=== PATIENT | male | born 2005 | race Two or more races ===

== ENCOUNTER 2024-08-18 17:53 | Emergency (ER) | payer OTHER ==
[~2024-08-18] VITALS: Ht 160 cm; Wt 59.0 kg
[2024-08-18] MEDS ORDERED: PROMETHAZINE HCL 50 MG/ML AMPUL IM ONE (20:00)
[2024-08-18] MEDS ORDERED: METOCLOPRAMIDE HCL 5 MG/ML VIAL IM ONE (20:00)
[2024-08-18] MEDS ORDERED: 0.9 % SODIUM CHLORIDE 1,000 ML IV ONE (20:00)
[2024-08-18 21:11] LABS: HEMATOCRIT 45.7 % (39.0-48.0); HEMOGLOBIN 15.7 g/dL (13-16.00); MEAN CELL VOLUME 88.4 fL (80.0-100.00); MEAN CORPUSCULAR HEMOGLOBIN 30.4 pg (27.00-32.0); MEAN CORPUSCULAR HGB CONC 34.4 g/dl (32.0-36.0); PLATELET COUNT 244 K/uL (150-450); RED BLOOD COUNT 5.17 M/uL (4.00-6.00); RED CELL DISTRIBUTION WIDTH 12.9 % (11.5-14.5)
[2024-08-18 21:33] LABS: ALBUMIN 4.9 gm/dL (3.4-5.0); BILIRUBIN TOTAL 1.17 mg/dL (0.3-1.2); CALCIUM 10.1 mg/dL (8.5-10.1); GFR 94.33; GLOBULINA 3.8 G/DL (2.4-3.5); POTASSIUM 4.07 mEq/L (3.5-5.1); TOTAL PROTEIN 8.7 gm/dL (6.4-8.2)
== END 2024-08-18 21:51 | disposition home or self-care (01) ==
LOC: ER 17:55
PROVIDERS: General Practice
DX: T70.29XA Other effects of high altitude, initial encounter (principal)